=== PATIENT | male | born 1990 | race Caucasian/White ===

== ENCOUNTER 2017-03-19 19:58 | Emergency (ER) | payer OTHER ==
[~2017-03-19] VITALS: Ht 172.7 cm; Wt 87.1 kg
[2017-03-19] MEDS ORDERED: ALBUTEROL SULFATE 2.5 MG/0.5 ML INH NEB SOLN NEB ONE (20:30)
[2017-03-19] MEDS ORDERED: PRED20TA PO (20:50)
[2017-03-19] MEDS ORDERED: ALBU17IN INH (20:50)
[2017-03-19] MEDS ORDERED: FLON1SPR (21:07)
[2017-03-19 21:09] VITALS: BP 138/78
[2017-03-19] MEDS ORDERED: predniSONE 20 MG TAB PO ONE (21:15)
[2017-03-19] MEDS ORDERED: ALBUTEROL 90 MCG/ACT 8GM HFA INHALER INH ONE (21:15)
--- NOTE | 2017-03-20 14:43 | REP ---
CHEST, TWO VIEWS: There is no evidence of acute infiltrate. No pleural effusion is seen. The heart is normal in size. The mediastinal silhouette is unremarkable. The visualized osseous structures are intact. IMPRESSION: No acute pulmonary disease. Signed by Cam Anne MD 03/20/2017 07:58 P
--- NOTE | 2017-03-21 20:43 | ECGEPIP ---
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
== END 2017-03-19 21:17 | disposition home or self-care (01) ==
LOC: M ED 21:06
DX: J20.9 Acute bronchitis, unspecified (principal)